=== PATIENT | female | born 1995 | race Asian ===

== ENCOUNTER 2016-11-11 15:24 | Emergency (ER) | payer SELFPAY ==
--- NOTE | 2016-11-11 15:36 | EDPHY ---
General Narrative: CHIEF COMPLAINT: suicidal ideation HISTORY OF PRESENT ILLNESS: Patients complains of having thoughts of wanting to . Symptoms have been present on and off since the start of this semester. She is a student at [employer]. She had thoughts most recently of wanting to drive off a [place]. She did go for a long drive 3:00 a.m. the plan is to do so but could not do it. She then took herself to the [facility] today. She was evaluated there, an M1 form was completed. She was then sent to our facility by police over for medical clearance. Patient says that at times she actually does want to , and other times she wants to get better. No previous diagnosis of depression. One previous suicide attempt several years ago by cutting on the left forearm. Denies drug use. Denies any ingestion of any substances. Has no other associated complaints or modifying factors. REVIEW OF SYSTEMS: Ten systems reviewed and are negative unless otherwise noted in the HPI PERTINENT MEDICAL HISTORY: EXAMINATION General Appearance: Alert, no distress Head: normocephalic, atraumatic Eyes: Pupils equal and round, no conjunctival pallor or injection ENT, Mouth: Mucous membranes moist. Uvula midline. Neck: Normal inspection, supple, non-tender Respiratory: Lungs are clear to auscultation. No wheezing, rhonchi or crackles. Cardiovascular: Regular rate and rhythm. No murmur. Pulses intact distally. Back: non-tender, no bony abnormalities Neurological: A&O, nonfocal, normal gait Skin: Warm and dry, no rash Extremities: Nontender, no pedal edema Psychiatric: Flat affect. Suicidal ideation with plan to drive off a [place]. No homicidal ideation. DIFFERENTIAL DIAGNOSES: Including but not limited to suicidal ideation, suicide attempt, major depression, depression, bipolar disorder, schizoaffective MDM: 3:35 p.m. Suicidal ideation with plans to drive herself off of a [place]. Patient has had previous incidence of suicide attempts by cutting the left forearm. She has no formal diagnosis of depression. She has not seen a therapist or psychiatrist in the past. She reports the symptoms have been worse during the started this semester with multiple stressors. She took herself to [facility] today. They evaluated her, completed an M1, and sent her to our facility by police department. Although she does have an M1 she has also voluntary and wants to get better. He remains cooperative in stable this time. 4:30 p.m. Laboratory studies have returned within normal limits. She is now medically clear for evaluation. Social Work will be contacted for evaluation. 6:40 p.m. Patient is still awaiting psychiatric evaluation. She remains calm and cooperative. At this time I have discussed the case with and the patient over to Dr. Montoya. Please see her note for final disposition. SUPERVISION: Patient was evaluated in conjunction with the supervising physician. Please see their note for details. (Roman Hawkins) Medical Decision Makin:00 p.m.-this patient was seen and evaluated by mental health. She was felt to be appropriate for inpatient Behavioral Health. She looking for inpatient disposition. A 11:00 p.m.-this patient was signed over to Dr. Romero at shift change. (Magda Montoya) [id number]: this patient has been accepted at [facility]. Emtala form filled out. Transfer being set up at this time. Dr. Talley agrees to admit. (Neil Romero) - Objective Vital Signs: Initial Vital Signs Temperature (C) 98.4 F 11/11/16 15:24 Heart Rate 102 H 11/11/16 15:24 Respiratory Rate 16 11/11/16 15:24 Blood Pressure 120/87 H 11/11/16 15:24 O2 Sat (%) 95 11/11/16 15:24 O2 Delivery Mode Room Air Allergies/Adverse Reactions: No Known Allergies Allergy (Unverified 11/11/16 15:40) Home Medications: Medication Instructions Recorded Adderall 10 MG (*) 11/11/16 Leonor Allergy 11/11/16 Laboratory Results: Laboratory Results 11/11/16 15:50 11/11/16 15:50 Departure - Departure Disposition: Other Psych, Not [facility] Clinical Impression: Suicide Qualifiers: Encounter type: initial encounter Qualified Code(s): X83.8XXA - Intentional self-harm by other specified means, initial encounter Condition: Good Referrals: UNK,UNKNOWN [Other] - As per Instructions
[2016-11-11 16:11] LABS: % IMMATURE GRANULYOCYTES 0.4 % (0.0-1.1); ABSOLUTE IMMATURE GRANULOCYTES 0.04 10^3/uL (0.00-0.10); ADD DIFF? NO; ADD MORPH? NO; ADD SCAN? NO; ATYPICAL LYMPHOCYTE FLAG 50 (0-99); FRAGMENT RBC FLAG 0 (0-99); HEMATOCRIT 44.9 % (38.0-47.0); LEFT SHIFT FLG 0 (0-99); LIPEMIA HEMOLYSIS FLAG 80 (0-99); MEAN CELL HEMOGLOBIN 29.6 pg (27.9-34.1); MEAN CELL HEMOGLOBIN CONCENTR. 33.4 g/dL (32.4-36.7); MEAN CELL VOLUME 88.7 fL (81.5-99.8); MEAN PLATELET VOLUME 8.6 fL (8.7-11.7); PLATELET CLUMPS FLAG 0 (0-99); PLATELET COUNT 353 10^3/uL (150-400); RED BLOOD CELL COUNT 5.06 10^6/uL (4.18-5.33); RED CELL DISTRIBUTION WIDTH 12.2 % (11.5-15.2)
[2016-11-11 16:25] LABS: ANION GAP 13 mEq/L (8-16); CALCIUM 9.7 mg/dL (8.5-10.4); CARBON DIOXIDE 23 mEq/l (22-31); CHLORIDE 100 mEq/L (97-110); CREATININE 0.6 mg/dL (0.6-1.0); ETHANOL SERUM < 10 mg/dL (0-10); GLOMERULAR FILTRATION RATE > 60; GLUCOSE 102 mg/dL (70-100); POTASSIUM 4.3 mEq/L (3.5-5.2); SALICYLATE < 1.0 mg/dL (2.0-20.0); SODIUM 136 mEq/L (134-144)
[2016-11-11 18:05] VITALS: O2SAT 96
[2016-11-12 00:14] VITALS: BP 117/80; PULSE 83; RESP 14; TEMP 97.9
== END 2016-11-12 00:10 ==
DX: R45.851 Suicidal ideations (principal)
CPT/HCPCS: 80305; G0480